=== PATIENT | male | born 1965 | race Caucasian/White ===

== ENCOUNTER → 2021-07-15 13:21 | Outpatient (CLI) | payer MEDICAID, SELFPAY ==
[2021-07-15 13:42] LABS: Absolute Lymphocyte Count 2.29 X10^3/uL (0.83-4.51); Absolute Neutrophil Count 4.4 X10^3/uL (2.0-7.7); Basophil# 0.05 X10^3/uL; Basophil% 0.7 % (0-1); Eosinophils% 1.3 % (0-5); Hematocrit 45.6 % (40-54); Hemoglobin 15.5 g/dL (13.0-16.5); Lymphocyte # 2.29 X10^3/ul (0.83-4.51); Lymphocyte % 30.1 % (19-41); Mean Corpuscular Hgb 30.5 pg (27.0-32.0); Mean Corpuscular Volume 89.8 fL (80-94); Monocyte# 0.75 X10^3/uL; Monocyte% 9.9 % (0-10); NRBC Flagged by Analyzer 0 % (0-5); Neutrophil % 57.7 % (47-70); Platelet Count 296 K/mm3 (150-450); RBC Distribution Width CV 11.9 % (11.6-14.6); RBC Distribution Width SD 38.6 fl (35.1-43.9); Red Blood Count 5.08 M/mm3 (4.6-6.2); White Blood Count 7.6 K/mm3 (4.4-11.0)
[2021-07-15 13:56] LABS: Anion Gap 6 (5-15); BUN 17 mg/dL (7-18); BUN/Creat Ratio 15.7 RATIO (10-20); Calcium,Total 9.1 mg/dL (8.5-10.1); Chloride 106 mmol/L (98-107); Creatinine, Serum 1.08 mg/dL (0.70-1.30); EST Glomerular Filtration Rate 76 mL/min (>60); Est Glom Filt Rate - Afr Amer 92 mL/min (>60); Glucose 99 mg/dL (74-106); Potassium 3.8 mmol/L (3.5-5.1); Sodium Level 140 mmol/L (136-145)
--- NOTE | 2021-07-15 13:58 | CT_ITS ---
STUDY: CT ABDOMEN AND PELVIS WITHOUT CONTRAST REASON FOR EXAM: Male, 56 years old. Abdominal pain -- hold pt, call RC with results RADIATION DOSAGE (If Supplied By Facility): CTDIvol = ( 13.74 ) mGy, DLP = ( 764.52 ) mGycm TECHNIQUE: Transaxial images were obtained from the dome of the diaphragm to the symphysis pubis without oral contrast, and without intravenous contrast. Sagittal and coronal images were reconstructed. Individualized dose optimization techniques were used for this CT. COMPARISON: None. FINDINGS: The visualized lung bases are unremarkable. The visualized portions of the heart are within normal limits. Hypoattenuated right hepatic 1.2 cm nodule in the liver. Normal gallbladder and extrahepatic biliary system. Normal spleen. Normal pancreas. Normal bilateral adrenal glands. Normal right kidney. Normal left kidney. Normal visualized stomach. Normal small intestine. Normal colon. The appendix is visualized and appears normal. Normal abdominal aorta. Normal inferior vena cava. Normal retroperitoneum. Normal urinary bladder. Small fatty umbilical hernia. Normal osseous structures. CT/Abdomen/Pel W ORAL Cont Only IMPRESSION: Hypoattenuated right hepatic nodule. Correlate with ultrasound if needed. Small fatty umbilical hernia. Electronically Signed: Prem King DO at 18:56 EST Tel [phone], Service support ,
== END ==
PROVIDERS: PCP Family Medicine; Referring Provider Surgery; Visit Provider Surgery
DX: R10.9 Unspecified abdominal pain (principal)
CPT/HCPCS: 36415; 74176; 80048; 85025

== ENCOUNTER → 2021-07-16 | Outpatient (CLI) | payer MEDICAID, SELFPAY | END | disposition home or self-care (01) | LOC: LABSPEC 11:04 | PROVIDERS: PCP Family Medicine; Referring Provider Surgery; Visit Provider Surgery | DX: R19.7 Diarrhea, unspecified (principal) | CPT/HCPCS: 87177; 87209; 87493; 87506 ==

== ENCOUNTER 2021-07-22 05:25 | Day surgery (SDC) | payer OTHER, SELFPAY ==
[2021-07-22] VITALS (10 sets, daily range): BP systolic 101–128; BP diastolic 63–86; PULSE 63–78; RESP 16–18; TEMP 35.7–36.5; O2SAT 93–99; BMI 25.2
--- NOTE | 2021-07-22 05:45 | HP.PCM_ITS ---
History and Physical Date of Admission: 07/22/21 Intake Visit Reasons: poss hernia/ change in bowel habits Chief Complaint: poss hernia/change in bowel habits [employer] Controls Operator Required: No Is patient in pain?: No Allergies No Known Allergies Allergy (Verified 07/15/21 12:50) [facility] Medical History (Updated 07/15/21 @ 13:[address] Dewayne Buchanan MD) Abdominal pain Diarrhea Surgical History (Updated 07/15/21 @ 12:47 by Mirtha Wednesday) History of colonoscopy Social History (Updated 07/15/21 @ 12:48 by Mirtha Wednesday) Smoking Status: Never smoker alcohol intake: never substance use type: does not use HPI HPI HPI: DEL GOTTLIEB, is a 56 M who presents to the office today for surgical consultation regarding a possible left groin hernia. The patient's also had an acute change in bowel habits. The patient is referred by Dr. Praful Galeas who saw the patient yesterday. A copy of my written consult recommendations will return to him. The patient was lifting something over his head developed a pain in the left lower quadrant. Based upon his Internet search he thought this was a hernia but he does not notice a bulge or a mass. 3 nights ago he had left lower quadrant pain. He was sweating was not sure whether he had a fever. He had darker stools. Thought maybe he had food poisoning. He was then slightly better the next 2 days in a row but then last night again similar episode of sweating pain foul-smelling stool. He did not eat today not sure of how he was going to proceed. He has had no previous history of peptic ulcer disease. He states that he had a colonoscopy 5 years ago does not recall any findings. He has had COVID-10 August 2020. He has not been vaccinated. He otherwise enjoys good health. This is a recent and acute illness ROS General General: No weight change, appetite, fatigue, colon cancer, breast cancer or weakness HEENT HEENT: No difficulty swallowing, eye injury, eye surgery, swollen glands or hoarseness Endo Endocrine: No thyroid disease, diabetes mellitus, thyroid cancer, Hair loss, heat intolerance or cold intolerance Skin Skin: No rash or changing moles Musc Musculoskeletal: No back problems, arthritis, rheumatoid arthritis, gout or joint pain Cardio Cardiovascular: No murmur, pacemaker, heart disease, atrial fibrillation, high blood pressure, heart attack, heart stent, palpitations, shortness of breat with exertion or chest pain Psych Psychiatric: No depression, anxiety or hearing voices Resp Respiratory: No shortness of breath, Yes sleep apnea, No cough, No COPD, No asthma, No emphysema and No wheezing Gastro Gastrointestinal: Yes abdominal pain, Yes nausea or vomiting, Yes diarrhea, No constipation, No blood in stool, No acid reflux, No hemorrhoids, No ulcers, No gallbladder problem and No black,tarry stools Valentino Hematologic: No blood thinners, No blood disorders, No bleeding, No anemia and No blood clots Neuro Neurologic: No system reviewed and no additional complaints, except as documented, No as per HPI, No abnormal gait, No abnormal hearing, No abnormal movements, No abnormal speech, No behavioral changes, No burning sensations, No confusion, No convulsions, No disequilibrium, No dizziness, No localized weakness, No frequent falls, No headache(s), No lack of coordination, No loss of vision, No memory loss, No numbness, No other visual disturbances, No radicular pain, No restless legs, No sensory deficit, No syncope, No tingling, No tremor(s), No weakness and No other Exam Const General: cooperative, healthy appearing, comfortable and no acute distress Nutritional Appearance: average body habitus Orientation: alert and awake [facility] Head: normal to inspection Eyes General: appearance normal, both eyes and all related structures Neck Neck: normal visual inspection Resp Effort & Inspection: normal respiratory effort Auscultation: clear to auscultation bilaterally Cardio Rate: regular rate Rhythm: regular rhythm GI Other: Soft, tender to palpation left lower quadrant with mild guarding, no focal mass, normal bowel sounds, slightly distended Extrem General: no calf tenderness Assessment and Plan Assessment and Plan (1) Abdominal pain: Status: Acute Qualifiers: Abdominal location: left lower quadrant Qualified Code(s): R10.32 - Left lower quadrant pain (2) Diarrhea: Status: Acute Qualifiers: Diarrhea type: unspecified type Qualified Code(s): R19.7 - Diarrhea, unspecified Plan Details Other Medications: New: ciprofloxacin HCl 500 mg PO BID 14 tabs 0RF metronidazole (Flagyl) 500 mg (1.3333 x 375 mg) PO BID 14 caps 0RF Other Orders: Orders: Basic Metabolic Profile (BMP) Today R10.9 Abdomen/Pel W ORAL Cont Only Today R10.9 CBC W/Diff, Automated Today R10.9 Additional Comments: My suspicion currently is that the patient has acute sigmoid diverticulitis. This would explain the left lower quadrant pain the episode of sweating and the change of stool habit more diarrhea and foul- smelling. I recommend that we obtain a BMP and a CBC with differential. I recommend that we pursue a oral contrasted CT scan of the abdomen. If it is early diver ticulitis and I recommend a clear liquid diet and initiation of ciprofloxacin and metronidazole. Obviously if there is evidence of more advanced process then would recommend proceeding with hospitalization for IV treatment. The patient currently does not appear to be toxic. If findings suggest more of a enterocolitis then we would want to pursue stool cultures and possible colonoscopy. The patient's had an opportunity to ask and have questions answered. We will pursue the laboratory and CT imaging. The patient will be notified of results and further instructions. Tentative prescriptions for oral antibiotics have been provided. Copy: Dr. Praful Galeas And his primary care physician Dr Marshall Buchanan M.D., F.A.C.S. CT abd/pelvis was not remarkable CMP and CBC normal Stool analysis unremarkable with neg C.Diff etc. Plan to proceed with colonoscopy with possible biopsy/polypectomy as indicated. [place]
[2021-07-22] MEDS: Lactated Ringers 1,000 ML 15 ML IV (05:50)
--- NOTE | 2021-07-22 06:30 | COLBX_PTH ---
PATIENT: DEL GOTTLIEB LOC: EN U#:[id number] AGE/SX: 56/M ROOM: RE07/22/[address]: Dr. Dewayne Buchanan MD : 1965 BED: DIS: 07/22/2021 SPEC #: [id number] RECD: 07/22/21 15:18 STATUS: HELGA WRIGHT #: [id number] TYRESE: 07/22/21 06:[address]: Dewayne Buchanan DEPT: SURGICAL PATHOLOGY RECD BY: Polly Worrell ENTERED: 07/23/21 09:38 SP TYPE: COLON BX OTHR DR: Dr. Marshall Faulkner MD Tissues: COLON BIOPSY Procedures: Surgery Specimen Level IV HEADER OPERATION: Colonoscopy (MOD) PRE-OP DIAGNOSIS: Abdominal pain, diarrhea TISSUE SUBMITTED: Random colonic biopsy MICROSCOPIC DIAGNOSIS Colon, random biopsy: Fragments of colonic mucosa, no pathologic diagnosis. SJ:andres 07/24/2021 MICROSCOPIC DESCRIPTION Slides are reviewed. GROSS DESCRIPTION Received in fixative is one container labeled with the patient's name and designated random colon biopsy. The specimen consists of multiple irregular fragments of light abreu soft tissue that in aggregate measure 2 x 0.5 x 0.1 cm. The specimen is totally submitted in one cassette. / SJ:andres 07/23/21 TC:5 CPT: 77660
[2021-07-22] MEDS: Midazolam 5 MG/ML Syringe (06:32)
--- NOTE | 2021-07-22 07:01 | OP.CCLET_ITS ---
07/22/2021 Marshall Faulkner [address] [place] [address] Re : Colonoscopy procedure for Diomedes Adrianaver Dear Dr. Faulkner This procedure was performed on Thursday, July 22, 2021. My impressions and recommendations are as follows: Impressions : - Non-thrombosed internal hemorrhoids, internal hemorrhoids that prolapse with straining, but spontaneously regress to the resting position (Grade II) and enlarged prostate found on digital rectal exam. - The entire examined colon is normal. Biopsied. Recommendations : - Discharge patient to home. - Resume previous diet. - Continue present medications. - Telephone my office for pathology results in 1 week. No diverticulosis or inflammation or source of left lower quadrant pain or diarrhea identified. Will await pathology and conservative approach to patient's course - Repeat colonoscopy in 10 years for screening purposes. My findings are described in the full procedure note, which is enclosed. If I can be of further assistance, please feel free to contact me at Doctor phone number(s): Work: . Sincerely, Dewayne Buchanan MD 07/22/2021 7:00:58 AM This report has been signed electronically.
--- NOTE | 2021-07-22 07:01 | OP.COLON_ITS ---
Patient Name: Diomedes Santos Procedure Date: 07/22/2021 6:19 AM Date of : 1965 Age: 56 Procedure: Colonoscopy Indications: Clinically significant diarrhea of unexplained origin Providers: Dewayne Buchanan MD Referring MD: Dewayne Buchanan MD Medicines: Midazolam 5 mg IV, Meperidine 100 mg IV Patient Profile: Last Colonoscopy: 5 years ago. Complications: No immediate complications. Procedure: Pre-Anesthesia Assessment: - Prior to the procedure, a History and Physical was performed, and patient medications and allergies were reviewed. The patient's tolerance of previous anesthesia was also reviewed. The risks and benefits of the procedure and the sedation options and risks were discussed with the patient. All questions were answered, and informed consent was obtained. Prior Anticoagulants: The patient has taken no previous anticoagulant or antiplatelet agents. ASA Grade Assessment: II - A patient with mild systemic disease. After reviewing the risks and benefits, the patient was deemed in satisfactory condition to undergo the procedure. After I obtained informed consent, the scope was passed under direct vision. Throughout the procedure, the patient's blood pressure, pulse, and oxygen saturations were monitored continuously. The Colonoscope was introduced through the anus and advanced to the cecum, identified by appendiceal orifice and ileocecal valve. The colonoscopy was performed without difficulty. The patient tolerated the procedure well. The quality of the bowel preparation was adequate to identify polyps. The ileocecal valve was photographed. Moderate Sedation: Moderate (conscious) sedation was personally administered by the endoscopist. The following parameters were monitored: oxygen saturation, heart rate, blood pressure, and response to care. Total physician intraservice time was 15 minutes. Scope In: 6:35:24 AM Scope Withdrawal Time 0 hours 10 minutes 24 seconds Scope Out: 6:51:57 AM Total Procedure Duration Time 0 hours 16 minutes 33 seconds Findings: The digital rectal exam findings include non-thrombosed internal hemorrhoids, internal hemorrhoids that prolapse with straining, but spontaneously regress to the resting position (Grade II) and enlarged prostate. Pertinent negatives include normal sphincter tone. The colon (entire examined portion) appeared normal. Biopsies for histology were taken with a cold forceps from the entire colon for evaluation of microscopic colitis. Impression: - Non-thrombosed internal hemorrhoids, internal hemorrhoids that prolapse with straining, but spontaneously regress to the resting position (Grade II) and enlarged prostate found on digital rectal exam. - The entire examined colon is normal. Biopsied. Recommendation: - Discharge patient to home. - Resume previous diet. - Continue present medications. - Telephone my office for pathology results in 1 week. No diverticulosis or inflammation or source of left lower quadrant pain or diarrhea identified. Will await pathology and conservative approach to patient's course - Repeat colonoscopy in 10 years for screening purposes. Procedure Code(s): --- Professional --- 77390, Colonoscopy, flexible; with biopsy, single or multiple 73631, 61, Moderate sedation services provided by the same physician or other qualified health healthcare administrator performing the diagnostic or therapeutic service that the sedation supports, requiring the presence of an independent trained observer to assist in the monitoring of the patient's level of consciousness and physiological status; initial 15 minutes of intraservice time, patient age 5 years or older Diagnosis Code(s): --- Professional --- K64.1, Second degree hemorrhoids R19.7, Diarrhea, unspecified N40.0, Benign prostatic hyperplasia without lower urinary tract symptoms CPT copyright 2017 [employer]. All rights reserved. The codes documented in this report are preliminary and upon speech correction assistant review may be revised to meet current compliance requirements. Dewayne Buchanan MD 07/22/2021 7:00:58 AM This report has been signed electronically. Number of Addenda: 0 Note Initiated On: 07/22/2021 6:19 AM
== END 2021-07-22 07:30 ==
LOC: EN 05:26 → AC 05:29
PROVIDERS: PCP Family Medicine; Referring Provider Family Medicine; Visit Provider Surgery
PROC: 0DJD8ZZ Inspection of Lower Intestinal Tract, Via Natural or Artificial Opening Endoscopic (ICD-10-PCS; CPT 45378; principal; 2021-07-22 06:25)
DX: K64.1 Second degree hemorrhoids (principal); N40.0 Benign prostatic hyperplasia without lower urinary tract symptoms
CPT/HCPCS: 45380; 88305; 99152; 99153; J7120

== ENCOUNTER → 2022-02-27 | Outpatient (CLI) | payer OTHER, SELFPAY ==
--- NOTE | 2022-02-27 | LES_PTH ---
PATIENT: DEL GOTTLIEB LOC: [facility] U#:[id number] AGE/SX: 57/M ROOM: RE02/27/[address]: Dr. Praful Galeas MD : 1965 BED: DIS: 02/27/2022 SPEC #: [id number] RECD: 02/27/22 17:25 STATUS: HELGA PEREZIna #: [id number] TYRESE: 02/27/22 00:[address]: Praful Galeas DEPT: SURGICAL PATHOLOGY RECD BY: Dexter Dubose ENTERED: 03/02/22 09:34 SP TYPE: Lesion OTHR DR: Dr. Marshall Faulkner MD Tissues: Skin of back, NOS Procedures: Surgery Specimen Level IV HEADER OPERATION: Skin excision PRE-OP DIAGNOSIS: Suspicious skin lesion TISSUE SUBMITTED: Back neoplasm MICROSCOPIC DIAGNOSIS Skin neoplasm of back, biopsy: Basal cell carcinoma, superficial nodular, ulcerated. See comment. AM:andres 03/03/2022 COMMENT The lesion appears to have been completely excised in the planes examined. MICROSCOPIC DESCRIPTION Slides are reviewed. GROSS DESCRIPTION Received in fixative is one container labeled with the patient's name and designated neoplasm. The specimen consists of a abreu-white skin ellipse measuring 1.6 x 1 cm and up to 0.5 cm in thickness. The specimen is inked, serially sectioned and submitted entirely in one cassette. / SJ:andres 03/02/2022 TC:0 CPT: 29140
== END | disposition home or self-care (01) ==
PROVIDERS: PCP Family Medicine; Visit Provider Family Medicine
DX: C44.519 Basal cell carcinoma of skin of other part of trunk (principal)
CPT/HCPCS: 88305